=== PATIENT | female | born 1960 | race Caucasian/White ===

== ENCOUNTER 2020-06-02 16:20 | Emergency (ER) | payer OTHER | END 2020-06-02 17:32 | disposition left against medical advice (07) | LOC: FER 16:20 | DX: R07.9 Chest pain, unspecified (principal); R53.1 Weakness; Z53.8 Procedure and treatment not carried out for other reasons | CPT/HCPCS: 93005 ==

== ENCOUNTER → 2021-09-03 | Day surgery (SDC) | payer OTHER ==
[~2021-09-03] VITALS: Ht 167.6 cm; Wt 72.6 kg
[~2021-09-03] MED LIST: [UNRECOGNIZED DRUG - REMARK] PO
[2021-09-03 08:29] LABS: HCT 39.3 % (37.0-47.0); HGB 13.1 g/dl (12.5-16.0); MCH 30.5 pg (25.0-31.0); MCHC 33.3 g/dL (32.0-36.0); MCV 91.4 fL (78.0-100.0); MPV 10.8 fL (6.0-9.5); RBC 4.3 M/uL (4.20-5.40); RDW 13.1 % (11.5-14.0); WBC 4.6 K/uL (4.0-10.5)
[2021-09-03 08:33] LABS: ALBUMIN 3.8 g/dL (3.4-5.0); BILIRUBIN - TOTAL 0.4 mg/dL (0.2-1.0); BUN/CREAT RATIO (CALC) 12.7 RATIO; CREATININE 0.71 mg/dL (0.51-0.95); GLOBULIN (CALCULATION) 3.1 g/dL; POTASSIUM 3.8 mmol/L (3.5-5.1); TOTAL PROTEIN 6.9 g/dL (6.4-8.2)
== END | disposition home or self-care (01) ==
LOC: FAS 07:35
PROVIDERS: Surgery
DX: Z12.11 Encounter for screening for malignant neoplasm of colon (principal); K63.89 Other specified diseases of intestine; K57.30 Diverticulosis of large intestine without perforation or abscess without bleeding; Z88.0 Allergy status to penicillin; Z88.2 Allergy status to sulfonamides; Z83.71 Family history of colonic polyps; Z88.8 Allergy status to other drugs, medicaments and biological substances; Z79.82 Long term (current) use of aspirin
CPT/HCPCS: 36415; 80053; J1610; J2250; J2704; J7120